=== PATIENT | female | born 1975 | race African-American/Black ===

== ENCOUNTER 2016-09-11 22:25 | Emergency (ER) | payer MEDICARE ==
[2016-09-12] MEDS ORDERED: DILAUDID 1 MG/ML AMP ONE (00:26)
== END 2016-09-12 02:44 | disposition home or self-care (01) ==
LOC: ER 22:25
DX: R09.1 Pleurisy (principal); F17.210 Nicotine dependence, cigarettes, uncomplicated
CPT/HCPCS: 71010; 96372; 99284; J1170